=== PATIENT | female | born 1950 | race Native Hawaiian/Other Pacific Islander ===

== ENCOUNTER 2017-01-13 07:23 | Emergency (ER) | payer OTHER ==
[~2017-01-13] VITALS: Ht 162.6 cm; Wt 107.0 kg
[2017-01-13 07:34] VITALS: TEMP 97.6
[2017-01-13 09:08] LABS: PLATELET COUNT 328 K/uL (152-353)
[2017-01-13 09:45] LABS: PARTIAL THROMBOPLASTIN TIME 30.4 SECONDS (24.5-33.6)
[2017-01-13 12:07] VITALS: BP 188/98
== END 2017-01-13 12:07 | disposition home or self-care (01) ==
LOC: ED 07:23
PROVIDERS: Emergency Medicine
DX: M47.892 Other spondylosis, cervical region (principal); M46.82 Other specified inflammatory spondylopathies, cervical region; R07.89 Other chest pain; E11.9 Type 2 diabetes mellitus without complications
CPT/HCPCS: 36415; 80053; 82550; 83036; 84484; 85027; 85610; 85730; 93005; 99283; J1885